=== PATIENT | male | born 1960 | race African-American/Black ===

== ENCOUNTER 2016-06-10 02:29 | Emergency (ER) | payer MEDICAID ==
[2016-06-10] MEDS ORDERED: OLANZapine DISINTEGR 10 MG TAB PO ONE (02:35)
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
[2016-06-10] MEDS ORDERED: LORazepam 2 MG/ML INJ ONE (03:06)
[2016-06-10 03:26] LABS: ANION GAP 15 mEq/L (8-16); CALCIUM 9.4 mg/dL (8.5-10.4); CARBON DIOXIDE 24 mEq/l (22-31); CHLORIDE 104 mEq/L (97-110); CREATININE 0.9 mg/dL (0.7-1.3); ETHANOL SERUM < 10 mg/dL (0-10); GLOMERULAR FILTRATION RATE > 60; GLUCOSE 120 mg/dL (70-100); POTASSIUM 3.9 mEq/L (3.5-5.2); SODIUM 143 mEq/L (134-144)
[2016-06-10 03:34] LABS: % IMMATURE GRANULYOCYTES 0.2 % (0.0-1.1); ABSOLUTE IMMATURE GRANULOCYTES 0.01 10^3/uL (0.00-0.10); ADD DIFF? NO; ADD MORPH? NO; ADD SCAN? NO; ATYPICAL LYMPHOCYTE FLAG 40 (0-99); FRAGMENT RBC FLAG 0 (0-99); HEMATOCRIT 48.5 % (40.0-51.0); HEMOGLOBIN 16.8 g/dL (13.7-17.5); LEFT SHIFT FLG 0 (0-99); LIPEMIA HEMOLYSIS FLAG 90 (0-99); MEAN CELL HEMOGLOBIN 28.8 pg (27.9-34.1); MEAN CELL HEMOGLOBIN CONCENTR. 34.6 g/dL (32.4-36.7); MEAN CELL VOLUME 83.2 fL (81.5-99.8); MEAN PLATELET VOLUME 10.1 fL (8.7-11.7); PLATELET CLUMPS FLAG 0 (0-99); PLATELET COUNT 218 10^3/uL (150-400); RED BLOOD CELL COUNT 5.83 10^6/uL (4.40-6.38); RED CELL DISTRIBUTION WIDTH 13.7 % (11.5-15.2)
[2016-06-10] MEDS ORDERED: LORazepam 2 MG/ML INJ IVP ONE (04:50)
[2016-06-11 08:03] VITALS: BP 123/84; PULSE 96; RESP 20; TEMP 97.5; O2SAT 95
== END 2016-06-11 09:10 | disposition home or self-care (01) ==
DX: F20.9 Schizophrenia, unspecified (principal); F19.10 Other psychoactive substance abuse, uncomplicated; I10 Essential (primary) hypertension
CPT/HCPCS: 96374; G0477; G0480

== ENCOUNTER 2016-06-14 21:21 | Emergency (ER) | payer MEDICAID ==
[2016-06-14] MEDS ORDERED: OLANZapine 10 MG/2 ML VIAL IM ONE (21:41)
[2016-06-14] MEDS ORDERED: LORazepam 2 MG/ML INJ ONE (21:50)
[2016-06-14] MEDS ORDERED: OLANZapine DISINTEGR 10 MG TAB ONE (21:56)
[2016-06-14] MEDS ORDERED: risperiDONE 2 MG TAB PO ONE (21:58)
[2016-06-14] MEDS ORDERED: OLANZapine DISINTEGR 10 MG TAB PO ONE (21:58)
--- NOTE | 2016-06-14 22:04 | EDPHY ---
H & P Smoking Status: Heavy smoker Time Seen by Provider: 06/14/16 21:36 HPI/ROS: CHIEF COMPLAINT: Paranoid schizophrenia HISTORY OF PRESENT ILLNESS: 56-year-old male presents to the emergency department with a history of paranoid schizophrenia stating that he is fearful for his own life. The patient is concerned that someone is after me. The patient is prescribed Risperdal for his paranoid schizophrenia and states that he has not been taking his medication. The patient is not suicidal or homicidal. He denies auditory or visual hallucinations currently. Patient was seen in the emergency department for similar complaint 4 days ago. The patient states at that time I was strong out on crack and meth". Currently he denies any physical complaints. No chest pain or difficulty breathing. No abdominal pain. No vomiting or diarrhea. No fevers or chills. REVIEW OF SYSTEMS: Constitutional: No fever, no chills. Eyes: No double or blurry vision. ENT: No sore throat. Respiratory: No cough, no shortness of breath. Cardiac: No chest pain. Gastrointestinal: No abdominal pain, vomiting or diarrhea. Genitourinary: No dysuria. Musculoskeletal: No neck or back pain. Skin: No rashes. Neurological: No headache. (PrettyMeagan fernandez) Past Medical/Surgical History: Paranoid schizophrenia (Lexis Rodgersjasiel Hernández) Social History: Homeless from [place] (Lexis Rodgersrina M) Physical Exam: General Appearance: Alert, no distress. Heart rate 120, 119/94, 91% Eyes: Pupils equal and round. Extraocular motions are all intact. ENT: Mouth: Mucous membranes moist. Respiratory: No wheezing, rhonchi, or rales, lungs are clear to auscultation. Cardiovascular: Regular rate and rhythm. Gastrointestinal: Abdomen is soft and nontender, no masses, no rebound or guarding, bowel sounds normal. Neurological: Alert and oriented x 3, cranial nerves II through XII grossly intact Skin: Warm and dry, no rashes. Musculoskeletal: Nontender to palpate along the cervical, thoracic or lumbar spine. Neck is supple. Extremities: Full range of motion and no peripheral edema. Psychiatric: Patient is oriented X 3, there is no agitation. (VishalMeagan) Constitutional: Initial Vital Signs Temperature (C) 37.1 C 06/14/16 21:24 Heart Rate 120 H 01/08/17 21:24 Respiratory Rate 18 06/14/16 21:24 Blood Pressure 114/94 H 06/14/16 21:24 O2 Sat (%) 91 L 06/14/16 21:24 O2 Delivery Mode Room Air Allergies/Adverse Reactions: No Known Allergies Allergy (Verified 06/10/16 02:42) Home Medications: Medication Instructions Recorded NK [No Known Home Meds] 06/14/16 Medical Decision Making ED Course/Re-evaluation: 56-year-old homeless male presents to the emergency department feeling paranoid. Patient has a history of paranoid schizophrenia. He has been prescribed Risperdal in the past. He was seen in the emergency department 4 days ago with similar symptoms. The patient voluntarily took Zyprexa 10 mg Zydis and 2 mg of Risperdal. (Meagan Rodgers) I evaluated and participated in the management of the patient. I also evaluated the patient independently. My co-signature indicates that I have reviewed this chart and I agree with the findings and plan of care as documented. My personal H&P findings include: The patient presents to the ED with reports of being paranoid and reportedly using methamphetamine 3 days ago. The patient has a history of this type of visit pattern ED. The patient denies being suicidal or homicidal the time of my evaluation. The patient tells me that he [facility] to [facility] that has a very nice bed where he can sleep." The patient tells me he does plan on contacting family tomorrow to arrange transportation out of the state. The patient did receive Ativan and Zyprexa in the ED. The patient was in the emergency department last week with similar presentation. He was discharged from the department after a long stay during that visit. I have vacated the patient's mental health hold. The patient will be allowed to stay in the emergency department tonight is he has no place to sleep. The patient will be discharged at 6 o'clock in the morning. The patient does contract for safety. He does understand that we cannot continue to provide him a place to sleep when he is unable to access the outpatient [facility] Centers. (Charlie Hernandez) Differential Diagnosis: Including functional and major depression, situational depression, medication side effect, drugs and alcohol abuse. (Meagan Rodgers) - Data Points Laboratory Results: Laboratory Results 06/14/16 21:44 06/14/16 21:44 06/14/16 21:44 WBC 6.56 10^3/uL (3.80-9.50) RBC 5.68 10^6/uL (4.40-6.38) Hgb 16.4 g/dL (13.7-17.5) Hct 47.5 % (40.0-51.0) MCV 83.6 fL (81.5-99.8) MCH 28.9 pg (27.9-34.1) MCHC 34.5 g/dL (32.4-36.7) RDW 13.3 % (11.5-15.2) Plt Count 213 10^3/uL (150-400) MPV 9.5 fL (8.7-11.7) Neut % (Auto) 46.3 % (39.3-74.2) Lymph % (Auto) 39.8 % (15.0-45.0) Toole % (Auto) 12.3 % (4.5-13.0) Eos % (Auto) 0.8 % (0.6-7.6) Baso % (Auto) 0.5 % (0.3-1.7) Nucleat RBC Rel Count 0.0 % (0.0-0.2) Absolute Neuts (auto) 3.04 10^3/uL (1.70-6.50) Absolute Lymphs (auto) 2.61 10^3/uL (1.00-3.00) Absolute Monos (auto) 0.81 H 10^3/uL (0.30-0.80) Absolute Eos (auto) 0.05 10^3/uL (0.03-0.40) Absolute Basos (auto) 0.03 10^3/uL (0.02-0.10) Absolute Nucleated RBC 0.00 10^3/uL (0-0.01) Immature Gran % 0.3 % (0.0-1.1) Immature Gran # 0.02 10^3/uL (0.00-0.10) Sodium 139 mEq/L (134-144) Potassium 3.9 mEq/L (3.5-5.2) Chloride 102 mEq/L (97-110) Carbon Dioxide 25 mEq/l (22-31) Anion Gap 12 mEq/L (8-16) BUN 7 mg/dL (7-23) Creatinine 0.8 mg/dL (0.7-1.3) Estimated GFR > 60 Glucose 108 H mg/dL (70-100) Calcium 9.3 mg/dL (8.5-10.4) Urine Opiates Screen NEGATIVE (NEGATIVE) Urine Barbiturates NEGATIVE (NEGATIVE) Ur Phencyclidine Scrn NEGATIVE (NEGATIVE) Ur Amphetamine Screen NON-NEGATIVE H (NEGATIVE) U Benzodiazepines Scrn NEGATIVE (NEGATIVE) Urine Cocaine Screen NEGATIVE (NEGATIVE) U Marijuana (THC) Screen NON-NEGATIVE H (NEGATIVE) Medications Given: Discontinued Medications Olanzapine (Zyprexa Zydis) 10 mg PO EDNOW ONE Stop: 06/14/16 21:59 Last Admin: 06/14/16 22:21 Dose: 10 mg Risperidone (Risperdal) 2 mg PO ONCE ONE Stop: 06/14/16 21:59 Last Admin: 06/14/16 22:21 Dose: 2 mg Departure - Departure Disposition: Home, Routine, Self-Care Clinical Impression: Schizophrenia Qualifiers: Schizophrenia type: paranoid schizophrenia Qualifier Code: (F20.0) Paranoid schizophrenia Condition: Good Instructions: Schizophrenia (ED) Additional Instructions: 1. Please follow-up with the mental health resources provided in the ED today. 2. [facility] does operate a 24/7 psychiatric crisis unit located at [address] [place] [address]. The telephone number for the 24 hour crisis center is [phone]. 3. Please return to the ED if you are feeling suicidal, having thoughts of harming yourself/others or should you feel unsafe or have worsening symptoms.
[2016-06-14 22:41] LABS: % IMMATURE GRANULYOCYTES 0.3 % (0.0-1.1); ABSOLUTE IMMATURE GRANULOCYTES 0.02 10^3/uL (0.00-0.10); ADD DIFF? NO; ADD MORPH? NO; ADD SCAN? NO; ATYPICAL LYMPHOCYTE FLAG 30 (0-99); FRAGMENT RBC FLAG 0 (0-99); HEMATOCRIT 47.5 % (40.0-51.0); HEMOGLOBIN 16.4 g/dL (13.7-17.5); LEFT SHIFT FLG 0 (0-99); LIPEMIA HEMOLYSIS FLAG 90 (0-99); MEAN CELL HEMOGLOBIN 28.9 pg (27.9-34.1); MEAN CELL HEMOGLOBIN CONCENTR. 34.5 g/dL (32.4-36.7); MEAN CELL VOLUME 83.6 fL (81.5-99.8); MEAN PLATELET VOLUME 9.5 fL (8.7-11.7); PLATELET CLUMPS FLAG 10 (0-99); PLATELET COUNT 213 10^3/uL (150-400); RED BLOOD CELL COUNT 5.68 10^6/uL (4.40-6.38); RED CELL DISTRIBUTION WIDTH 13.3 % (11.5-15.2)
[2016-06-14 23:03] LABS: ANION GAP 12 mEq/L (8-16); CALCIUM 9.3 mg/dL (8.5-10.4); CARBON DIOXIDE 25 mEq/l (22-31); CHLORIDE 102 mEq/L (97-110); CREATININE 0.8 mg/dL (0.7-1.3); GLOMERULAR FILTRATION RATE > 60; GLUCOSE 108 mg/dL (70-100); POTASSIUM 3.9 mEq/L (3.5-5.2); SODIUM 139 mEq/L (134-144)
[2016-06-15 06:08] VITALS: BP 106/76; PULSE 92; RESP 16; TEMP 98.2; O2SAT 94
== END 2016-06-15 06:18 | disposition home or self-care (01) ==
LOC: EEVIPCON 21:21
DX: F20.0 Paranoid schizophrenia (principal); F17.200 Nicotine dependence, unspecified, uncomplicated
CPT/HCPCS: 80305